=== PATIENT | male | born 2000 | race African-American/Black ===

== ENCOUNTER 2020-04-27 04:21 | Inpatient (IN) | payer BC, OTHER ==
[~2020-04-27] VITALS: Ht 182.9 cm; Wt 67.6 kg
[2020-04-27 05:11] LABS: Basophils # (auto) 0.1 10 ^3/uL (0-0.2); Eosinophils # (auto) 0 10 ^3/uL (0-0.8); Hemoglobin 9.1 g/dL (13.5-17.5); Nucleated Red Blood Cells % 0.1 %; White Blood Cell 21.5 10^3/uL (4.4-10.8)
[2020-04-27 05:13] LABS: Basophils % (auto) 0.3 % (0.0-2.0); Hematocrit 27.5 % (41.0-53.0); Lymphocytes # (auto) 1.9 10 ^3/uL (0.4-5.4); Lymphocytes % (auto) 8.9 % (10.0-50.0); Mean Corpuscular Hemoglobin 26.4 pg (28.0-32.0); Mean Corpuscular Volume 79.9 fL (80.0-100.0); Monocytes # (auto) 0.8 10 ^3/uL (0-1.3); Monocytes % (auto) 3.7 % (0.0-12.0); Neutrophils # (auto) 18.8 10 ^3/uL (1.6-8.6); Neutrophils % (auto) 87.1 % (37.0-80.0); Red Blood Cells 3.44 10^6/uL (4.5-5.90); Red Cell Distribution Width 15.6 % (11.8-14.3)
[2020-04-27 05:29] LABS: Potassium 3.8 mmol/L (3.5-5.1)
[2020-04-27 05:35] LABS: Albumin 1.9 g/dL (3.4-5.0); BUN/Creatinine Ratio 20.3; Calcium 8.1 mg/dL (8.5-10.1); Magnesium 1.7 mg/dL (1.6-2.6)
[2020-04-27 05:40] LABS: Bilirubin, Total 0.5 mg/dL (0.2-1.0); Total Protein 6.6 g/dL (6.4-8.2)
[2020-04-27 06:13] LABS: Urine Bacteria FEW /hpf (None Seen); Urine Blood Negative /uL (Negative); Urine Mucus FEW (None Seen); Urine Specific Gravity 1.023 (1.001-1.035); Urine WBC 4 /hpf (0 - 3)
[2020-04-27] MEDS ORDERED: ASPirin 81 mg TAB PO ONE (06:15)
[2020-04-27] MEDS ORDERED: ENOXAPARIN SOD 60 MG/0.6 ML SYRINGE SC ONE (06:15)
[2020-04-27] MEDS ORDERED: ALBUMIN 5% 250 ML IV ONE (06:45)
[2020-04-27] MEDS ORDERED: SODIUM CHLORIDE 0.9% 1,000 ML IV SCH (06:45)
[2020-04-27 07:25] LABS: Alcohol, Urine < 3.0 mg/dL (0-10); Benzodiazephine Screen, Urine NEGATIVE (NEGATIVE); Cannabinoid Screen, Urine POSITIVE (NEGATIVE); Cocaine Screen, Urine NEGATIVE (NEGATIVE); Opiate Scree,Urine NEGATIVE (NEGATIVE); Phencyclidine Screen, Urine NEGATIVE (NEGATIVE)
[2020-04-27 07:34] LABS: Amphetamine Screen, Urine NEGATIVE (NEGATIVE); Barbiturate Scree,Urine NEGATIVE (NEGATIVE)
[2020-04-27] MEDS ORDERED: ACETAMINOPHEN 325 MG TAB PO PRN (08:00)
[2020-04-27] MEDS ORDERED: DOCUSATE SOD 100 MG CAP PO PRN (08:00)
[2020-04-27] MEDS ORDERED: NITROGLYCERIN 0.4 MG SL TAB SL PRN (08:00)
[2020-04-27] MEDS ORDERED: HYDROcodone-ACET 5/325MG TAB PO PRN (08:00)
[2020-04-27] MEDS ORDERED: PIPERACILLIN-TAZOB 3.375GM 100 ML IV SCH (08:00)
[2020-04-27] MEDS ORDERED: ONDANSETRON HCL 4 MG/2 ML VIAL IV PRN (08:00)
[2020-04-27] MEDS ORDERED: MORPHINE SULFATE 4 MG/ML SYR/VIAL IV PRN (08:00)
[2020-04-27] MEDS ORDERED: MORPHINE SULFATE INJECTION 2 MG/ML SYRG IV PRN (08:00)
[2020-04-27] MEDS ORDERED: IOPAMIDOL 76 % (ISOVUE-370) 100ML BTL IV ONE (08:49)
[2020-04-27 09:44] VITALS: BP 102/65
[2020-04-27] MEDS ORDERED: FUROSEMIDE 20 MG/2 ML VIAL IV SCH ×2 (10:00→10:45)
[2020-04-27] MEDS ORDERED: ASPirin 81 mg TAB PO SCH (10:00)
[2020-04-27] MEDS ORDERED: dilTIAZem 120MG ER CAP PO SCH (10:00)
[2020-04-27] MEDS ORDERED: MULTIPLE VITAMIN TAB PO SCH (10:00)
[2020-04-27] MEDS ORDERED: ASCORBIC ACID 500 MG TAB PO SCH (10:00)
[2020-04-27] MEDS ORDERED: FAMOTIDINE 20 MG TAB PO SCH (10:00)
[2020-04-27] MEDS ORDERED: ZINC SULFATE 220mg CAP or TAB PO SCH (10:00)
[2020-04-27] MEDS ORDERED: REMDESIVIR PER PHARMACY 0 ML IV SCH (10:15)
[2020-04-27 10:40] LABS: Lymphocytes # (auto) 2.5 10 ^3/uL (0.4-5.4); Lymphocytes % (auto) 12.7 % (10.0-50.0)
[2020-04-27] MEDS ORDERED: FUROSEMIDE 40 MG/4 ML VIAL IV SCH (10:40)
[2020-04-27 10:43] LABS: Basophils # (auto) 0.1 10 ^3/uL (0-0.2); Basophils % (auto) 0.6 % (0.0-2.0); Eosinophils # (auto) 0 10 ^3/uL (0-0.8); Eosinophils % (auto) 0.2 % (0.0-7.0); Hematocrit 31.8 % (41.0-53.0); Hemoglobin 10.1 g/dL (13.5-17.5); Mean Corpuscular Hemoglobin 25.7 pg (28.0-32.0); Mean Corpuscular Hgb Conc. 31.9 g/dL (32.0-36.0); Mean Corpuscular Volume 80.5 fL (80.0-100.0); Monocytes # (auto) 0.6 10 ^3/uL (0-1.3); Neutrophils # (auto) 16.8 10 ^3/uL (1.6-8.6); Neutrophils % (auto) 83.5 % (37.0-80.0); Red Blood Cells 3.94 10^6/uL (4.5-5.90); White Blood Cell 20.1 10^3/uL (4.4-10.8)
[2020-04-27 10:53] LABS: Calcium 8.5 mg/dL (8.5-10.1); Potassium 4.3 mmol/L (3.5-5.1)
[2020-04-27 10:58] LABS: Albumin 1.9 g/dL (3.4-5.0); BUN/Creatinine Ratio 24.6; Bilirubin, Total 0.6 mg/dL (0.2-1.0); Total Protein 6.9 g/dL (6.4-8.2)
[2020-04-27] MEDS ORDERED: DexAMETHasone SOD PHOS 10MG/1ML VIAL INJ IV ONE (13:00)
[2020-04-27] MEDS ORDERED: DOXYCYCLINE 100MG/250ML 250 ML IV SCH (13:00)
[2020-04-27 13:08] VITALS: BP 90/60
[2020-04-27] MEDS ORDERED: ALBUTEROL SULF HFA 90MCG INH 200DOSE IN SCH (14:00)
[2020-04-27] MEDS ORDERED: SODIUM CHLOR 0.9% PF (SALINE LOCK) 10ML VIAL/SYR IV SCH (14:00)
[2020-04-27] MEDS ORDERED: ENOXAPARIN SOD 60 MG/0.6 ML SYRINGE SC SCH (18:00)
[2020-04-27] MEDS ORDERED: ENOXAPARIN SOD 40 MG/0.4 ML SYRINGE SC SCH (22:00)
[2020-04-28] MEDS ORDERED: IVERMECTIN 3 MG TAB PO ONE (07:00)
[2020-04-28] MEDS ORDERED: ASPirin 81 mg TAB PO SCH (10:00)
== END 2020-04-27 13:08 | disposition short-term general hospital (02) | DRG 871 ==
LOC: ER 04:21 → TELE 04:22
PROVIDERS: ADMIT Nurse Practitioner Family; ATTEND Nurse Practitioner Family
DX: A41.9 Sepsis, unspecified organism (principal); I21.4 Non-ST elevation (NSTEMI) myocardial infarction; J96.00 Acute respiratory failure, unspecified whether with hypoxia or hypercapnia; J45.901 Unspecified asthma with (acute) exacerbation; J81.1 Chronic pulmonary edema; J90 Pleural effusion, not elsewhere classified; Z20.822 Contact with and (suspected) exposure to COVID-19; F12.90 Cannabis use, unspecified, uncomplicated; I34.0 Nonrheumatic mitral (valve) insufficiency; Z79.899 Other long term (current) drug therapy; Z79.891 Long term (current) use of opiate analgesic; Z79.01 Long term (current) use of anticoagulants
CPT/HCPCS: 36415; 71045; 71275; 80053; 80307; 81001; 82306; 82728; 83036; 83615; 83735; 83880; 84443; 84484; 85025; 85379; 86141; 87086; 87426; 93005; 93306; 96365; 96366; 96368; 96372; 96375; 99291; G0378; J2405; J2543